=== PATIENT | male | born 1955 | race Caucasian/White ===

== ENCOUNTER 2024-01-08 12:17 | Day surgery (SDC) | payer MEDICARE ==
[2024-01-08] MEDS ORDERED: Sodium Chloride 0.9% 10 ML Syringe FLUSH PRN (12:30)
[2024-01-08] MEDS: Lactated Ringers 1,000 ML IV SCH (12:31)
[2024-01-08] MEDS ORDERED: Propofol 200 MG/20 ML SDV ONE (14:27)
[2024-01-08] MEDS ORDERED: Propofol 200 MG/20 ML SDV IV ONE (14:39)
[2024-01-08 16:54] VITALS: BP 154/82; PULSE 74
== END 2024-01-08 15:50 | disposition home or self-care (01) ==
LOC: LL.SDS 12:17
PROVIDERS: ATTEND Surgery
DX: Z12.11 Encounter for screening for malignant neoplasm of colon (principal); I10 Essential (primary) hypertension; E78.5 Hyperlipidemia, unspecified; Z79.899 Other long term (current) drug therapy; Z88.0 Allergy status to penicillin; Z86.010 Personal history of colon polyps
CPT/HCPCS: J2704; J7120

== ENCOUNTER 2024-09-03 22:57 | Emergency (ER) | payer MEDICARE ==
[2024-09-03] MEDS ORDERED: Sodium Chloride 0.9% 10 ML Syringe FLUSH PRN (23:07)
[2024-09-03 23:15] LABS: BASOPHILS ABSOLUTE AUTO 0.05 K/uL (0.00-0.20); BASOPHILS PERCENT AUTO 0.4 % (0.0-2.0); EOSINOPHILS ABSOLUTE AUTO 0.14 K/uL (0.00-0.50); HEMATOCRIT 47.9 % (39.0-49.0); HEMOGLOBIN 16.3 g/dL (13.1-16.8); IMMATURE GRAN ABSOLUTE AUTO 0.08 10^3/uL (0.00-0.04); IMMATURE GRAN PERCENT AUTO 0.6 % (0.0-0.4); LYMPHOCYTES ABSOLUTE AUTO 4.49 K/uL (0.50-3.50); LYMPHOCYTES PERCENT AUTO 32.2 % (10.0-50.0); MEAN CORPUSCULAR HEMOGLOBIN 30.9 pg (28.2-33.3); MEAN CORPUSCULAR VOLUME 90.7 fL (84.0-98.0); MONOCYTES ABSOLUTE AUTO 1.13 K/uL (0.00-1.00); MONOCYTES PERCENT AUTO 8.1 % (2.0-14.0); NEUTROPHILS ABSOLUTE AUTO 8.04 K/uL (1.40-7.00); NEUTROPHILS PERCENT AUTO 57.7 % (45.0-80.0); PLATELET COUNT,PLT 255 K/uL (150-350); RED BLOOD CELL COUNT 5.28 M/uL (4.33-5.41); RED CELL DISTRIBUTION WIDTH 11.7 % (11.2-14.1); WHITE BLOOD CELL COUNT,WBC 13.9 K/uL (4.0-10.2)
[2024-09-03 23:36] LABS: ALANINE AMINOTRANSFERASE,ALT 50 U/L (12-78); ALBUMIN 4.2 g/dL (3.4-5.0); ALKALINE PHOSPHATASE 89 IU/L (46-116); ANION GAP 9.9 meq/L (7-15); ASPARTATE AMNIOTRANSFERASE,AST 23 U/L (15-37); BILIRUBIN TOTAL 0.5 mg/dL (0.2-1.0); BLOOD UREA NITROGEN,BUN 15 mg/dL (7-18); CALCIUM 9.8 mg/dL (8.5-10.1); CARBON DIOXIDE,CO2 28.1 mmol/L (21.0-32.0); CHLORIDE,CL 104 mmol/L (98-107); CREATININE 1.15 mg/dL (0.51-1.17); ETHANOL BLOOD MEDICAL 0.265 g/dL (0.000-0.080); GLUCOSE RANDOM 107 mg/dL (70-99); POTASSIUM,K 3.5 mmol/L (3.5-5.1); PROTEIN TOTAL,TP 7.1 g/dL (6.4-8.2); SODIUM,NA 142 mmol/L (136-145)
[2024-09-03 23:37] LABS: ESTIMATED GFR 69 mL/min (>=60)
[2024-09-03 23:38] LABS: PROTHROMBIN TIME 10.4 SEC (9.0-11.1)
== END 2024-09-04 00:40 | disposition home or self-care (01) ==
LOC: LL.ED 22:57
DX: S00.01XA Abrasion of scalp, initial encounter (principal); S50.311A Abrasion of right elbow, initial encounter; S50.811A Abrasion of right forearm, initial encounter; I10 Essential (primary) hypertension; E78.00 Pure hypercholesterolemia, unspecified; Z88.0 Allergy status to penicillin; Z88.8 Allergy status to other drugs, medicaments and biological substances; Z79.899 Other long term (current) drug therapy; W10.9XXA Fall (on) (from) unspecified stairs and steps, initial encounter; Y93.89 Activity, other specified
CPT/HCPCS: 36415; 70450; 71250; 72125; 80053; 80307; 82947; 85025; 85610; 85730; 93005; 93010; 99284